=== PATIENT | female | born 1995 | race Caucasian/White ===

== ENCOUNTER 2025-07-23 11:01 | Emergency (ER) | payer MEDICAID, OTHER ==
[~2025-07-23] VITALS: Ht 170.2 cm; Wt 82.1 kg
[2025-07-23 11:10] VITALS: TEMP 98.1
[2025-07-23] MEDS ORDERED: ONDANSETRON HCL/PF 4 MG/2 ML VIAL ONE (11:41)
[2025-07-23] MEDS ORDERED: KETOROLAC TROMETHAMINE 15 MG/ML VIAL ONE (11:48)
[2025-07-23] MEDS: ONDANSETRON HCL/PF 4 MG/2 ML VIAL IVP ONE (11:51)
[2025-07-23] MEDS: IV NS 0.9% 1,000 ML BAG IV ONE (11:51)
[2025-07-23] MEDS: KETOROLAC TROMETHAMINE 15 MG/ML VIAL IV ONE (11:53)
[2025-07-23 11:59] LABS: APPEARANCE,URINE CLEAR (CLEAR); BLOOD, URINE Negative Ery/uL (NEGATIVE); LEUKOCYTE ESTERASE ,URINE Negative (NEGATIVE); NITRITE, URINE NEGATIVE (NEGATIVE); PLATELET COUNT (AUTO) 239 K/uL (150-450); RED BLOOD CELL COUNT(AUTO) 4.85 MIL/uL (4.0-5.2); RED CELL DISTRIBUTION WIDTH 15.1 % (11.5-15.0); UGLUCOSE Negative (NEGATIVE); WHITE BLOOD COUNT (AUTO) 7.5 K/uL (4.3-11.0)
[2025-07-23 12:04] LABS: CALCIUM, SERUM 8.8 mg/dL (8.5-10.1); CREATININE 0.7 mg/dL (0.6-1.3); SODIUM SERUM 138.0 mmol/L (136-145); UREA NITROGEN, BLOOD 12.0 mg/dL (7-18)
[2025-07-23 12:09] LABS: ASPARTATE AMINOTRANSFERASE 15.0 U/L (15-37); TOTAL PROTEIN, SERUM 8.2 g/dL (6.4-8.2)
[2025-07-23 13:47] VITALS: BP 110/75; O2SAT 98
== END 2025-07-23 13:46 | disposition home or self-care (01) ==
LOC: ER 11:10
DX: N83.202 Unspecified ovarian cyst, left side (principal); R10.20 Pelvic and perineal pain unspecified side
CPT/HCPCS: 99285; 74176; 96374; 76856; 96361; 96375; 85025; 80048; 83690; 80076; 81003; 36415; 84702; J1885; J2405; J7030 ×2; A6403